=== PATIENT | female | born 1995 | race Caucasian/White ===

== ENCOUNTER 2018-05-05 10:42 | Emergency (ER) | payer SELFPAY ==
[~2018-05-05] VITALS: Ht 165.1 cm; Wt 80.9 kg
[2018-05-05] MEDS ORDERED: IBUPROFEN 200 MG TABLET PO ONE (11:30)
[2018-05-05] MEDS ORDERED: LORazepam 1MG TABLET PO ONE (11:30)
[2018-05-05] MEDS ORDERED: LORazepam 1MG TABLET ONE (11:40)
[2018-05-05] MEDS ORDERED: IBUPROFEN 200 MG TABLET ONE (11:40)
[2018-05-05 13:00] VITALS: BP 128/83
== END 2018-05-05 13:02 | disposition home or self-care (01) ==
LOC: ED 12:55
DX: H66.002 Acute suppurative otitis media without spontaneous rupture of ear drum, left ear (principal)
CPT/HCPCS: 99283